=== PATIENT | male | born 1990 | race Caucasian/White ===

== ENCOUNTER 2019-09-24 12:26 | Emergency (ER) | payer OTHER ==
[~2019-09-24] VITALS: Ht 177.8 cm; Wt 108.9 kg
[2019-09-24] MEDS ORDERED: NEOMYCIN/POLYMYX/BACITR OINT 0.9 GM PKT ONE (12:41)
[2019-09-24] MEDS ORDERED: TETANUS/DIPHTHERIA TOX ADULT 0.5 ML SYR ONE (12:41)
[2019-09-24] MEDS ORDERED: MUPIROCIN 2% OINT 22 GM TUBE TOP ONE (12:45)
[2019-09-24] MEDS ORDERED: TETANUS/DIPHTHERIA TOX ADULT 0.5 ML SYR IM ONE (12:45)
--- NOTE | 2019-09-24 13:21 | Diagnostic Imaging Report ---
FOOT 3 VIEW LT - HOPD - Multiple views HISTORY: trauma to foot COMPARISON: None available. FINDINGS: Bones: No acute displaced fracture. Osseous alignment is within normal limits. Joints: The joint spaces are well-maintained. Soft tissues: The soft tissues appear unremarkable. IMPRESSION: No acute radiographic abnormality. Signed by: Favio Mcfarland MD on 09/24/2019 1:17 PM
--- NOTE | 2019-09-24 16:26 | Emergency Department Note ---
History of Present Illnes History of Present Illness Chief Complaint: puntcure wound to left foot History of Present Illness This is a 28 year old male who since to puncture wound to left foot status post stepping on a nail. Patient was wearing a tennis shoes, which are approximately 1 month old. He states he stepped on a nail that was facing upward that was driven through a board. The patient is on metformin for diabetes. He is not on insulin. He states that his hemoglobin A1c is normal on metformin, however he cannot provide me a number. He denies any other injuries. He denies any numbness tingling or weakness of his foot. He denies any bleeding or discharge. No fever or chills. The patient states that he has no issues with diabetic neuropathy of his feet. The patient felt that he has no retained foreign body but was not completely sure. Onset (how long ago): hour(s) Location: left foot on lateral plantar surface Quality: sharp Radiation: Reports non-radiation Severity: mild Onset quality: sudden Duration (how long): hour(s) (1 hour prior to arrival) Timing of current episode: constant Progression: unchanged Chronicity: new Context: Reports trauma/injury Relieving factors: rest Exacerbating factors: other (is worse with weightbearing) Associated symptoms: Reports denies other symptoms Past Medical/Family History Physician Review I have reviewed the patient's past medical and family history. Any updates have been documented here. Past Medical History Past Medical History: Diabetes Review of Systems Review of Systems Constitutional: Reports no symptoms Cardiovascular: Reports no symptoms Respiratory: Reports no symptoms Gastrointestinal: Reports no symptoms Musculoskeletal: Reports no symptoms, Reports as per HPI Integumentary: Reports as per HPI Neurological: Reports no symptoms Psychological: Reports no symptoms Endocrine: Reports no symptoms Physical Exam Related Data Allergies: Coded Allergies: cefaclor (Verified Allergy, Unknown, 09/24/19) Physical Exam CONSTITUTIONAL Constitutional: Present well-developed, Present well-nourished HENT EYES NECK PULMONARY CARDIOVASCULAR Cardiovascular: Present regular rhythm, Present heart sounds normal, Present capillary refill normal, Present normal rate GASTROINTESTINAL Abdominal: Present soft, Present nontender, Present bowel sounds normal GENITOURINARY SKIN Skin: Present other (puncture wound to the plantar surface of left foot. This is over the metatarsal phalangeal joint of the small toe.) MUSCULOSKELETAL Musculoskeletal: Present tenderness (there is tenderness over the puncture wound as described above on the plantar surface of the left foot. This puncture wound is about 2 mm in diameter) NEUROLOGICAL Neurological: Present alert, Present oriented x 3, Present no gross motor or sensory deficits PSYCHOLOGICAL Psychological: Present mood/affect normal, Present judgement normal Results Imaging Impressions Procedure: [id number] HOPD/FOOT 3 VIEW LT - [facility]D Exam Date: 09/24/19 Exam Time: 1249 REPORT STATUS: Signed FOOT 3 VIEW LT - HOPD - Multiple views HISTORY: trauma to foot COMPARISON: None available. FINDINGS: Bones: No acute displaced fracture. Osseous alignment is within normal limits. Joints: The joint spaces are well-maintained. Soft tissues: The soft tissues appear unremarkable. IMPRESSION: No acute radiographic abnormality. Signed by: Favio Henry MD on 09/24/2019 1:17 PM Dictated By: FAVIO HENRY MD Transcribed By: AMAN on 09/24/19 1317 Procedures Procedures Procedure: Patient's wound was prepped with Betadine. The wound was irrigated with 250 mL of normal saline. The Betadine was then removed with an alcohol pad. Anabolic ointment was applied. The wound was dressed with a Band-Aid. The patient tolerated the procedure well & there were no complications. Assessment & Plan Medical Decision Making MDM An x-ray was ordered due to the patient not being sure if there could be ret ained foreign body of the nail. Furthermore, the patient could have material from the shoe that was retained in the puncture wound. Given the fact that the puncture wound went through a shoe the patient is a higher risk of pseudomonas infection. This is further exacerbated by the fact that the patient is a diabetic. He will be discharged on clindamycin and Cipro. Distress with the patient and the need for wound care. He is also to have prompt follow-up for a wound check. Assessment & Plan Final Impression: (1) Puncture wound of left foot (2) Puncture wound of foot, left Depart Disposition: HOME, SELF-CARE KERRY PARSON MD Sep 24, 2019 13:01
== END 2019-09-24 13:25 | disposition home or self-care (01) ==
LOC: FSED 12:45
DX: S91.332A Puncture wound without foreign body, left foot, initial encounter (principal); W45.0XXA Nail entering through skin, initial encounter; E11.9 Type 2 diabetes mellitus without complications
CPT/HCPCS: 90471; 90714; 99284